=== PATIENT | female | born 1995 | race Caucasian/White ===

== ENCOUNTER 2016-11-16 18:23 | Emergency (ER) | payer SELFPAY ==
[~2016-11-16] VITALS: Ht 149.9 cm; Wt 51.4 kg
[2016-11-16] MEDS ORDERED: IBUPROFEN 600 MG TABLET PO ONE (19:30)
[2016-11-16 19:53] VITALS: BP 116/83
== END 2016-11-16 20:00 | disposition home or self-care (01) ==
LOC: EMS 18:24
DX: M54.2 Cervicalgia (principal); M25.512 Pain in left shoulder; V43.62XA Car passenger injured in collision with other type car in traffic accident, initial encounter; Y93.89 Activity, other specified; Y92.411 Interstate highway as the place of occurrence of the external cause; Y99.8 Other external cause status
CPT/HCPCS: 99282